=== PATIENT | male | born 1985 ===

== ENCOUNTER 2018-06-02 03:11 | Emergency (ER) | payer OTHER ==
[2018-06-02 03:31] VITALS: TEMP 98; O2SAT 98
--- NOTE | 2018-06-02 04:15 | ED PDOC ---
HPI: General Adult Time Seen by Provider: 06/02/18 03:15 Chief Complaint (Nursing): GI Problem Chief Complaint (Provider): Bloody stools History Per: Patient History/Exam Limitations: no limitations Onset/Duration Of Symptoms: Days, Intermittent Episodes Current Symptoms Are (Timing): Still Present Additional Complaint(s): Dean Charles is a 32 year old male, with no significant past medical history, who presents to the emergency department with complaints of intermittent episodes of bloody stools. Patient reports he had x2 episodes of bloody stools in the last few days and states last time he had an episode was in November. He denies any pain, fever, chills, vomiting or diarrhea. No further medical complaints. no overuse of NSAIDS PMD: None provided. Past Medical History Reviewed: Historical Data, Nursing Documentation, Vital Signs Vital Signs: Last Vital Signs Temp 98.0 F 06/02/18 03:29 Pulse 78 06/02/18 05:38 Resp 18 06/02/18 05:38 BP 107/68 06/02/18 05:38 Pulse Ox 98 06/02/18 05:38 - Medical History PMH: No Chronic Diseases - Surgical History Surgical History: No Surg Hx - Family History Family History: States: Unknown Family Hx - Social History Current smoker - smoking cessation education provided: No Alcohol: None Drugs: Denies - Allergies Allergies/Adverse Reactions: Allergies Allergy/AdvReac Type Severity Reaction Status Date / Time No Known Allergies Allergy Verified 06/02/18 03:31 Review of Systems ROS Statement: Except As Marked, All Systems Reviewed And Found Negative Constitutional: Negative for: Fever, Chills Gastrointestinal: Positive for: Other (bloody stools). Negative for: Nausea, Vomiting, Abdominal Pain, Diarrhea Physical Exam - Reviewed Nursing Documentation Reviewed: Yes Vital Signs Reviewed: Yes - Physical Exam Appears: Positive for: Non-toxic, No Acute Distress Head Exam: Positive for: ATRAUMATIC, NORMOCEPHALIC Skin: Positive for: Normal Color, Warm, Dry Eye Exam: Positive for: Normal appearance, EOMI, PERRL Neck: Positive for: Painless ROM, Supple Cardiovascular/Chest: Positive for: Regular Rate, Rhythm. Negative for: Murmur Respiratory: Positive for: Normal Breath Sounds. Negative for: Respiratory Distress Gastrointestinal/Abdominal: Positive for: Normal Exam, Soft. Negative for: Tenderness, Guarding, Rebound Back: Positive for: Normal Inspection. Negative for: L CVA Tenderness, R CVA Tenderness, Vertebral Tenderness Extremity: Positive for: Normal ROM (upper and lower extremities). Negative for : Deformity, Swelling Neurologic/Psych: Positive for: Alert, Oriented - Laboratory Results Result Diagrams: 06/02/18 04:33 06/02/18 04:33 - ECG O2 Sat by Pulse Oximetry: 98 (RA) Pulse Ox Interpretation: Normal Medical Decision Making Medical Decision Making: Time: 03:37 Initial Impression: Rectal bleed Initial Plan: --CMP --CBC w/ differential --Occult blood, stool --Reevaluation 05:31 -Was only able to get a small stool sample. but no blood on glove. Explained pt labs are normal but has to follow up with GI for further evaluation/workup. 05:35 -Upon provider reevaluation patient is feeling better, is medically stable, and requires no further treatment in the ED at this time. Patient will be discharged home. Counseling was provided and all questions were answered regarding diagnosis and need for follow up with GI. There is agreement to discharge plan. Return if symptoms persist or worsen. ----- Scribe Attestation: Documented by Michael Sal, acting as a scribe for Mikala Taylor MD. Provider Scribe Attestation: All medical record entries made by the Scribe were at my direction and personally dictated by me. I have reviewed the chart and agree that the record accurately reflects my personal performance of the history, physical exam, medical decision making, and the department course for this patient. I have also personally directed, reviewed, and agree with the discharge instructions and disposition. Disposition - Clinical Impression Clinical Impression: Rectal bleed - Patient ED Disposition Is Patient to be Admitted: No Counseled Patient/Family Regarding: Studies Performed, Diagnosis, Need For Followup - Disposition Disposition: Routine/Home Disposition Time: 05:30 Condition: IMPROVED Additional Instructions: follow up with the GI doctor for colonoscopy as planned return to the ED with any worsening or concerning symptoms Instructions: Bloody Stools, Adult (DC) Forms: [employer] (Icelandic) Print Language: CHINESE
[2018-06-02 04:52] LABS: BASO # 0.1 K/uL (0.0-0.2); EOS # 0.2 K/uL (0.0-0.7); HEMOGLOBIN 14.3 g/dL (12.0-18.0); LYMPH # 2.1 K/uL (1.0-4.3); LYMPH % 23.6 % (20.0-40.0); MEAN CELL VOLUME 90.7 fl (80.0-94.0); MEAN CORPUSCULAR HEMOGLOBIN 30.9 pg (27.0-31.0); MEAN CORPUSCULAR HGB CONC 34.1 g/dL (33.0-37.0); MEAN PLATELET VOLUME 10.1 fl (7.2-11.7); MONO % 11.7 % (0.0-10.0); NEUT # 5.4 K/uL (1.8-7.0); NEUT % 61.7 % (50.0-75.0); NRBC % 0.1 % (0.0-0.0); RBC 4.64 Mil/uL (4.40-5.90); RED CELL DISTRIBUTION WIDTH 12.8 % (11.5-14.5); WHITE BLOOD COUNT 8.7 K/uL (4.8-10.8)
[2018-06-02 05:03] LABS: ALB/GLOB RATIO 1.3 (1.0-2.1); ALBUMIN 4.6 g/dL (3.5-5.0); ALT/SGPT 38 U/L (21-72); AST/SGOT 35 U/L (17-59); BLOOD UREA NITROGEN 19 mg/dl (9-20); CALCIUM 9.3 mg/dL (8.4-10.2); GFR AFRICAN-AMERICAN > 60; GFR NON-AFRICAN AMERICAN > 60
[2018-06-02 05:39] VITALS: BP 107/68; PULSE 78; RESP 18
== END 2018-06-02 05:56 | disposition home or self-care (01) ==
LOC: H.ER 03:11
DX: K62.5 Hemorrhage of anus and rectum (principal)

== ENCOUNTER 2018-06-28 07:22 | Day surgery (SDC) | payer OTHER ==
[2018-06-28] MEDS ORDERED: Lactated Ringer's 500 ML IV ONE (07:49)
[2018-06-28 08:00] VITALS: TEMP 97
[2018-06-28] MEDS ORDERED: Propofol 10 mg/ml Inj (20 ML) ONE (09:07)
[2018-06-28 10:02] VITALS: BP 102/78; PULSE 65; RESP 11; O2SAT 100
== END 2018-06-28 10:02 | disposition home or self-care (01) ==
LOC: H.ENDO 07:22
PROVIDERS: ATTEND Internal Medicine Gastroenterology
DX: K92.1 Melena (principal); K64.8 Other hemorrhoids; K63.89 Other specified diseases of intestine
CPT/HCPCS: 45378; J2704; J7120